=== PATIENT | male | born 1990 | race African-American/Black ===

== ENCOUNTER 2017-05-31 08:59 | Emergency (ER) | payer OTHER ==
[~2017-05-31] VITALS: Ht 188 cm; Wt 149.7 kg
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
[2017-05-31] MEDS ORDERED: IBUPROFEN 600 MG TABLET PO ONE ×2 (09:08→09:30)
--- NOTE | 2017-05-31 09:10 | NUR ---
MEDICATED PATIENT PER MD ORDERS.
[2017-05-31 10:15] VITALS: BP 138/75
== END 2017-05-31 10:34 | disposition home or self-care (01) ==
LOC: ER 08:59
DX: M25.561 Pain in right knee (principal); J45.909 Unspecified asthma, uncomplicated
CPT/HCPCS: 73564-TC; A4606; Z7610